=== PATIENT | male | born 1955 | race Caucasian/White ===

== ENCOUNTER → 2017-09-14 | Outpatient (CLI) | payer OTHER ==
--- NOTE | 2017-09-14 16:40 | RADIOLOGY REPORT (SQ) ---
EXAM DESCRIPTION: MRI LUMBAR SPINE WITHOUT COMPLETED DATE/TIME: 09/14/2017 3:43 pm REASON FOR STUDY: M54.16 RADICULOPATHY, LUMBAR REGION M54.16 RADICULOPATHY, LUMBAR REGION COMPARISON: None. TECHNIQUE: Sagittal and Axial imaging includes T1, T2, STIR and gradient echo sequences. Coronal T2/ HASTE imaging. LIMITATIONS: None. FINDINGS: VISUALIZED UPPER ABDOMEN: Limited evaluation. No acute or suspicious findings suggested. SEGMENTATION: Transitional anatomy with prominent L5 transverse processes articulating with the upper sacrum ALIGNMENT: Mild grade 1 anterolisthesis of L4 over L5 VERTEBRAE: Intact. BONE MARROW: Fatty marrow change in the anterior aspect of the L1-2 thru L4-5 vertebral body endplate s DISC SIGNAL: Decreased T2 weighted intervertebral disc signal at L5-S1 POSTERIOR ELEMENTS: Generally intact. No pars defect evident. HARDWARE: None in the spine. CORD AND CONUS: Normal in size and signal intensity. Conus at the L1-2 level. SOFT TISSUES: No aortic aneurysm seen. No bulky retroperitoneal adenopathy or mass. No paraspinal mas s or fluid. T11-12: Minimal posterior disc bulging and bony spurring, mild bilateral facet hypertrophy. No sign ificant central or foraminal stenosis. T12-L1: Unremarkable L1-L2: Unremarkable L2-L3: Minimal posterior disc bulging, mild bilateral facet hypertrophy. No central or foraminal tramaine nosis. L3-L4: Mild diffuse posterior disc bulging, moderate bilateral facet and ligament hypertrophy. No ce ntral stenosis. Mild right foraminal narrowing without exiting L3 nerve root impingement. No left f oraminal stenosis L4-L5: Grade 1 anterolisthesis of L4 over L5 due to facet arthropathy. Bulky bilateral facet hypertr ophy and ligamentum flavum calcification/ossification. Borderline central canal narrowing. Mild ciro ateral inferior foraminal narrowing without exiting L4 nerve root impingement. L5-S1: Mild posterior disc bulging, bulky bilateral facet hypertrophy. No central canal narrowing. Mild bilateral inferior foraminal stenosis SACRUM: Visualized upper sacrum intact. OTHER: No other significant findings. IMPRESSION: Degenerative changes as above. TECHNICAL DOCUMENTATION: JOB ID: [id number]- All Rights Reserved
== END ==
LOC: RAD 15:04
PROVIDERS: ATTEND Physician Assistant
DX: M54.16 Radiculopathy, lumbar region (principal)
CPT/HCPCS: 72148